=== PATIENT | female | born 1955 | race Native Hawaiian/Other Pacific Islander ===

== ENCOUNTER 2024-06-09 10:48 | Emergency (ER) | payer MEDICARE, OTHER ==
[~2024-06-09] VITALS: Ht 160 cm; Wt 95.5 kg
[2024-06-09 10:55] VITALS: TEMP 99.1
[2024-06-09] MEDS ORDERED: ATEN-72 PO (10:59)
[2024-06-09] MEDS ORDERED: AMLO-258 PO (10:59)
[2024-06-09] MEDS ORDERED: ATOR40TA28 PO (10:59)
[2024-06-09] MEDS ORDERED: LOSA-382 PO (10:59)
[2024-06-09 11:25] LABS: COVID AG,FIA SOURCE NASAL SWAB
[2024-06-09 11:46] LABS: SARS-COV2 (COVID) ANTIGEN,FIA Negative (Negative)
[2024-06-09 11:47] LABS: INFLUENZA TYPE A NEGATIVE FOR TYPE A (NEGATIVE); INFLUENZA TYPE B POSITIVE FOR TYPE B (NEGATIVE)
[2024-06-09 12:45] VITALS: BP 142/66; PULSE 78; RESP 20; O2SAT 95
== END 2024-06-09 12:46 | disposition home or self-care (01) ==
LOC: EMS 10:48
DX: J10.1 Influenza due to other identified influenza virus with other respiratory manifestations (principal); R05.9 Cough, unspecified; R09.81 Nasal congestion; R53.83 Other fatigue; I10 Essential (primary) hypertension; Z20.822 Contact with and (suspected) exposure to COVID-19
CPT/HCPCS: 87804; 99283